=== PATIENT | female | born 1980 | race American Indian/Alaskan Native ===

== ENCOUNTER 2016-03-22 09:00 | Inpatient (IN) | payer OTHER ==
[2016-04-20 12:13] LABS: Hematocrit 42.4 % (30.3-42.9); Hemoglobin 14.2 gm/dl (10.1-14.3); Mean Corpuscular HGB Conc 33 % (30-34); Mean Corpuscular Hemoglobin 29 pg (28-32); Mean Corpuscular Volume 88 fl (79-97); Platelet Count 335 K/mm3 (140-440); Red Blood Count 4.85 M/mm3 (3.65-5.03); Red Cell Distribution Width 14.8 % (13.2-15.2); White Blood Count 7.6 K/mm3 (4.5-11.0)
--- NOTE | 2016-04-20 12:24 | Anesthesia Consultation ---
Anesthesia Consult and Med Hx Date of service: 04/20/16 - Airway Anesthetic Teeth Evaluation: Good ROM Head & Neck: Adequate Mental/Hyoid Distance: Adequate Mallampati Class: Class II Intubation Access Assessment: Probably Good - Pulmonary Exam CTA: Yes - Cardiac Exam Cardiac Exam: RRR - Pre-Operative Health Status ASA Pre-Surgery Classification: ASA2 Proposed Anesthetic Plan: General Nerve Block: TAP - Pulmonary Hx Smoking: No Hx Asthma: Yes (USES FLOVENT DAILY, ALBUTEROL PRN) Hx Respiratory Symptoms: No Hx Sleep Apnea: No - Cardiovascular System Hx Hypertension: No Hx Cardia Arrhythmia: Yes (PALPITATIONS, BECERRA SYNDROME (POSTURAL HYPOTENSION, TACHYCARDIA)) Hx Valvular Heart Disease: Yes (MVP) - Central Nervous System Hx Neuromuscular Disorder: Yes (FIBROMYALGIA, CARPAL TUNNEL BILATERAL, PELVIC PAIN) Hx Seizures: No CVA: No Hx Psychiatric Problems: No - Endocrine Hx Renal Disease: No Hx Cirrhosis: No Hx Non-Insulin Dependent Diabetes: No Hx Hypothyroidism: No - Hematic Hx Anemia: No - Other Systems Hx Alcohol Use: Yes (rarely) Hx Cancer: No Hx Obesity: No - Additional Comments Anesthesia Medical History Comments: [facility]. RECENTLY SEEN BY DR. OCONNELL (DECAL APPLIER) FROM [facility]. STARTED PATIENT ON INDERAL.
[2016-04-24] MEDS ORDERED: VERSED IV NR (06:00)
[2016-04-24] MEDS ORDERED: REGLAN PO NR (06:00)
[2016-04-24] MEDS ORDERED: PEPCID PO NR (06:00)
[2016-04-24] MEDS ORDERED: LACTATED RINGERS 1,000 ML IV SCH (06:00)
[2016-04-24] MEDS ORDERED: NEURONTIN PO NR (06:00)
[2016-04-24] MEDS ORDERED: SUBLIMAZE IV NR (06:00)
[2016-04-24] MEDS ORDERED: NACL BACTERIOSTATIC INFILTRATI ONE (11:44)
--- NOTE | 2016-04-24 11:52 | History and Physical Report ---
History of Present Illness Date of examination: 04/24/16 Date of admission: 04/24/16 11:20 Chief complaint: Symptomatic fibroid uterus History of present illness: Patient is a 35-year-old black female G0, LMP 03/29/2016 presents for surgical evaluation of her symptomatic fibroid uterus. A pelvic ultrasound performed showed an enlarged uterus with a large lateral fibroid measuring 4.57 cm x 3.79 cm, and a posterior fibroid measuring 3.22 cm x 2.70 cm. She is therefore scheduled for an abdominal myomectomy since she desires future fertility. Past History Past Medical History: asthma, arrhythmia (Normal ECHO and normal EKG) Past Surgical History: no surgical history [employer] History: fibroids Family/Genetic History: diabetes, cancer Social history: no significant social history, Medications and Allergies Allergies Allergy/AdvReac Type Severity Reaction Status Date / Time buspirone HCl [From BuSpar] Allergy N&V, Verified 04/19/16 16:43 blurred vision Home Medications Medication Instructions Recorded Confirmed Last Taken Type Albuterol Sulfate [Ventolin HFA] 2 puff IH Q4H PRN 04/19/16 04/24/16 04/21/16 History Ascorbic Acid [Vitamin C] 250 mg PO QDAY 04/19/16 04/19/16 04/22/16 History Cyanocobalamin [Vitamin B-12] 1,000 mcg PO DAILY 04/19/16 04/19/16 04/22/16 History Fluticasone (Nf) [Flovent Hfa(Nf)] 2 puff IH BID 04/19/16 04/24/16 04/24/16 10: 30 History Loratadine [Claritin] 10 mg PO DAILY 04/19/16 04/24/16 04/22/16 History Multivitamin Tab [Multiple Vitamin 1 each PO QDAY 04/19/16 04/19/16 04/22/16 History TAB (Theragran)] Multivits Min/Iron/FA/Herb#186 1 each PO DAILY 04/19/16 04/19/16 04/22/16 History [Hair, Skin and Nails Caplet] Om3/Dha/Epa/Cod Liver Oil/A/D3 1 each PO DAILY 04/19/16 04/19/16 04/22/16 History [Cod Liver Oil Softgel] Propranolol HCl 20 mg PO TID 04/19/16 04/24/16 04/24/16 10:30 History Pyridoxine HCl [Vitamin B-6] 100 mg PO DAILY 04/19/16 04/19/16 04/22/16 History Ubidecarenone [Coq-10] 100 mg PO DAILY 04/19/16 04/19/16 04/22/16 History Vitamin B Complex [Natural B-100] 1 each PO DAILY 04/19/16 04/19/16 04/22/16 History Vitamin E 1,000 unit PO DAILY 04/19/16 04/19/16 04/22/16 History Norgestimate-Ethinyl Estradiol 1 each PO DAILY 04/24/16 04/24/16 1 Month Ago History [Sprintec 28 Day Tablet] Active Meds: Active Medications Celecoxib (Celebrex) 200 mg PO PREOP NR Stop: 04/24/16 23:59 Famotidine (Pepcid) 20 mg PO PREOP NR Stop: 04/24/16 23:59 Fentanyl (Sublimaze) 100 mcg IV ONCE NR Stop: 04/24/16 23:59 Gabapentin (Neurontin) 300 mg PO PREOP NR Stop: 04/24/16 23:59 Lactated Ringer's (Lactated Ringers) 1,000 mls @ 75 mls/hr IV DIRECT KAVON Cefazolin Sodium (Ancef/Sterile Water 2 Gm/20 Ml) 2 gm in 20 mls @ 80 mls/hr IV PREOP KAVON PRN Reason: Protocol Metoclopramide HCl (Reglan) 10 mg PO PREOP NR Stop: 04/24/16 23:59 Midazolam HCl (Versed) 2 mg IV PREOP NR Stop: 04/24/16 23:59 Review of Systems All systems: negative - Vital Signs Vital signs: Vital Signs Temp Pulse Resp BP 98.2 F 100 H 14 132/80 04/20/16 11:30 04/20/16 11:30 04/20/16 11:30 04/20/16 11:30 Temp Pulse Resp BP Pulse Ox 98.6 F 75 20 113/75 100 04/24/16 11:35 04/24/16 11:35 04/24/16 11:35 04/24/16 11:35 04/24/16 11:35 - Physical Exam Breasts: Positive: deferred Cardiovascular: Regular rate Lungs: Positive: Clear to auscultation Abdomen: Positive: normal appearance Genitourinary (Female): Positive: normal external genitalia Vagina: Positive: normal moisture Uterus: Positive: enlarged Extremities: Positive: normal Results Result Diagrams: 04/20/16 11:40 All other labs normal. Ultrasound: image reviewed Assessment and Plan - Patient Problems (1) Fibroid uterus Onset Date: 04/24/16 Current Visit: Yes Status: Chronic Qualifiers: Uterine leiomyoma location: subserosal Qualified Code(s): D25.2 - Subserosal leiomyoma of uterus Plan to address problem: A: Symptomatic fibroid uterus History of endometriosis P: Admit for an abdominal myomectomy We will have Cell Saver available since patient will not receive any blood products
[2016-04-24] MEDS ORDERED: ANCEF/STERILE WATER 2 GM/20 ML 2 GM/20 ML SYRINGE IV SCH (12:00)
[2016-04-24] MEDS ORDERED: XYLOCAINE MPF 2% ONE (12:40)
[2016-04-24] MEDS ORDERED: QUELICIN ONE (12:40)
[2016-04-24] MEDS ORDERED: SUBLIMAZE ONE ×2 (12:40→12:41)
[2016-04-24] MEDS ORDERED: DIPRIVAN 10 MG/ML IV ONE (12:41)
[2016-04-24] MEDS ORDERED: ROBINUL ONE (13:05)
[2016-04-24] MEDS ORDERED: ZOFRAN ONE (13:18)
[2016-04-24] MEDS ORDERED: REGLAN ONE (13:18)
[2016-04-24] MEDS ORDERED: NACL 0.9% IV ONE (13:43)
[2016-04-24] MEDS ORDERED: ACD-A IV ONE (13:43)
[2016-04-24] MEDS ORDERED: ePHEDrine SULFATE ONE (13:44)
[2016-04-24] MEDS ORDERED: NACL 0.9% IR ONE (13:44)
[2016-04-24] MEDS ORDERED: LACTATED RINGERS 1,000 ML ONE (13:45)
[2016-04-24] MEDS ORDERED: NEOSTIGMINE ONE (13:52)
[2016-04-24] MEDS ORDERED: MORPHINE ONE (14:29)
[2016-04-24] MEDS ORDERED: REGLAN IV PRN (15:04)
[2016-04-24] MEDS ORDERED: ZOFRAN IV PRN (15:04)
[2016-04-24] MEDS ORDERED: BENADRYL IV PRN (15:04)
[2016-04-24] MEDS ORDERED: NARCAN 0.4 MG/1 ML IV PRN (15:04)
[2016-04-24] MEDS ORDERED: PHENERGAN PR PRN (15:07)
[2016-04-24] MEDS ORDERED: TYLENOL PO PRN (15:07)
[2016-04-24] MEDS ORDERED: MILK OF MAGNESIA PO PRN (15:07)
[2016-04-24] MEDS ORDERED: PERCOCET 5/325 PO PRN (15:07)
--- NOTE | 2016-04-24 15:32 | Operative Report ---
Operative Report Operative Report: Date of procedure: 04/24/2016 Pre-operative diagnosis: Symptomatic fibroid uterus Post-operative diagnosis: Same with right ovarian cyst Procedure name(s): 1. Abdominal myomectomy 2. Right ovarian cystectomy Surgeon: Blaine Hernandez MD [employer] Consulting Architect: None Anesthesia: General endotracheal intubation by Dr. Jesús Bundy EBL: 100 mL's Findings: A 12-14 week size multi-myomatous uterus with a right ovarian cyst and normal left ovary. Normal fallopian tubes bilaterally. The endometrial cavity was not entered, thus the patient should not be subjected to a C- section should she get . Procedure: After the patient was correctly identified, she was prepped and draped in the usual sterile fashion and placed in dorsolithotomy position. First the skin knife was used to make a transverse skin incision. The incision was extended down to layer of the fascia which was nicked in the midline and extended laterally using Bovie cautery. The rectus muscles were dissected off the rectus fascia both superiorly and inferiorly. The rectus bellies in the midline and the peritoneum was entered under direct visualization. Exploration of the pelvic organs found the uterus to be enlarged approximately 12-14 week size with 2 large prominent myomas and several small myomas. Both fallopian tubes appeared to be normal bilaterally. The right ovary was cystic and the left ovary appeared to be normal. Next Pitressin solution was used to infiltrate the base of the myomas which were both located at the fundus of the uterus. After the incision into the serosal layer, the myomas were removed using both sharp and blunt dissection. The endometrial cavity was not entered. 3 small fibroids removed in similar fashion. The myometrial layer was reapproximated using 2-0 Monocryl suture, thus occluding the space, and the serosal layer was also reapproximated using 2-0 Monocryl suture in a running interlocking fashion. The same procedure was performed for each fibroid , and excellent hemostasis was achieved. The right ovarian cyst was removed, and the ovary closed using 3-0 Vicryl suture in a running interlocking fashion. At this point the procedure was considered complete. Copious amounts of irrigation was then performed, and the Tisseel sealant was sprayed across the serosal layer. Excellent hemostasis was assured. The uterus was then returned to its normal anatomical position, and the peritoneum was reapproximated using 0 Vicryl suture in a running interlocking fashion. The rectus muscles were also reapproximated using 0 Vicryl suture in a [id number] configuration. The fascia was reapproximated using 0 Vicryl suture in a running interlocking fashion, the subcutaneous layer was made hemostatic using Bovie cautery and the skin edges reapproximated using 3-0 Monocryl suture in a subcuticular fashion. The patient tolerated the procedure well and was transported to recovery in stable condition.
[2016-04-24] MEDS ORDERED: MORPHINE PCA 30MG/30ML IV SCH (16:00)
[2016-04-24] MEDS ORDERED: NACL 0.9% 1000 ML 1,000 ML IV SCH (16:00)
[2016-04-24] MEDS ORDERED: ANCEF/NS 1 GM/50 ML 1 GM/50 ML BAG IV SCH (16:00)
[2016-04-24] MEDS: D5LR 1,000 ML IV SCH (17:30)
[2016-04-24] MEDS: TORADOL IV SCH (17:30)
--- NOTE | 2016-04-24 19:02 | Admit Criteria Form ---
Admission Criteria Documentation: AMBULATORY SURGERY EXCEPTION CRITERIA Ambulatory Surgery Exception Criteria ( Place 'X' for any and all applicable criteria): Surgery or procedure performed on ambulatory basis may require inpatient stay for[A] ANY ONE of the following(1)(2)(3)(4)(5)(6)(7)(8)(9): [X] I. A preoperative situation, condition, or finding that warrants inpatient stay as indicated by ANY ONE of the following: [] a) Inpatient care needed because of severity of a disease or condition rather than the surgery (eg, severe cardiac or respiratory disease, severe infection) (15) (16 ) (17) (18) [] b) Emergent procedure (eg, angioplasty for acute ischemia)(19) [X] c) Complex surgical approach or situation as indicated by ANY ONE of the following(3): [X] i) Open approach needed instead of usual endoscopic, transcatheter, or other less invasive procedure [] ii) Difficult approach because of previous operation [] iii) Airway monitoring required after open neck procedures(20)(21) [] iv) Large mass requiring unusually extensive dissection [] v) Additional complicating feature requiring inpatient care (eg, drain management)(22(23): [] d) Major surgery in a pt with high anesthetic risk as indicated by ANY ONE of the following (2)(3)(5)(7)(8): [] i) ASA risk class III or higher (severe systemic disease impairing function) [D] [] ii) Advanced age (eg, older than 85 years)(14)(24) [] iii) Symptomatic heart failure(25) [] iv) Symptomatic asthma or COPD(8)(21) [] v) Morbid obesity with hemodynamic or respiratory problems(20)( 21)(26)(27) [] vi) Obstructive sleep apnea(20)(21) [] vii) Former premature infants who are younger than 60 weeks [] viii) High risk for severe postoperative abnormalities (eg, severe postoperative hypocalcemia after parathyroidectomy for severe hyperparathyroidism)(27)( 28) [] ix) Unstable angina(25) [] e) Drug-related risk requiring inpatient stay as indicated by ANY ONE of the following(5)(10)(14)(32)(33) [] i) Procedure requires discontinuing drugs or other therapy (eg , antiarrhythmic medication, antiseizure medication), which necessitates inpatient observation or treatment.(18)(31) [] ii) Major surgery and high risk drug use as indicated by ANY ONE of the following: [] 1) Active abuse of cocaine or similar drug [] 2) Monoamine oxidase inhibitor use [] 3) Other drug identified as posing risk [] f) Inadequate outpatient care situation as indicated by ANY ONE of the following(5)(10)(14)(32)(33) [] i) Patient lives remote from medical facility and procedure has urgent complication potential, and temporary nearby residence cannot be arranged [] ii) Patient will have postprocedure incapacitation and inadequate assistance at home, or alternative level of care cannot be arranged. [] iii) Patient will have long general anesthesia or procedure side effect resolution time, and competent person to stay with patient on first postoperative night at home or alternative level of care cannot be arranged. []iv) Other inadequate outpatient situation that cannot be handled by other means [] II. A perioperative event, condition, or finding that warrants inpatient stay as indicated by ANY ONE of the following (1)(2)(3): [] a) Inadequate physiologic recovery: cardiovascular, respiratory, or hemodynamic status not normal or near preoperative baseline(18) [] b) Hemodynamic instability [] c) Patient not alert with near normal or baseline mental status [] d) Temperature not normal or as expected and not appropriate for outpatient treatment of condition [] e) Ambulatory or appropriate activity level status not yet achieved post procedure [E](34)(35)(36) [] f) Operative site not appropriate (eg, unexpected or excessive drainage or bleeding) [] g) Postoperative effects not resolved or adequately managed (eg, significant pain or vomiting not appropriate for outpatient or next level of care)(10)(12) [] h) Complicating features requiring inpatient care as indicated by ANY ONE of the following(37): [] i) Severe complications of procedure (eg, bowel injury, airway compromise, vascular injury,severe hemorrhage) [] ii) Extensive (eg, dissection far beyond usual scope of procedure ) or prolonged (eg, 120 minutes beyond usual) surgery needed requiring inpatient postoperative care [] iii) Conversion to an open or complex procedure that requires inpatient care (eg, open vs laparoscopic cholecystectomy, abdominal vs vaginal hysterectomy)(38) [] iv) Comorbid condition or test result identified during or post procedure that requires inpatient care (7) [] v) Malignant hyperthermia(30) [] vi) Other complicating feature requiring inpatient care(22)(23) Inpatient stay may be needed until ALL of the following are present (1)(2)(3)(4) (5)(6)(10)(14)(33)(40): []a) Physiologic recovery: cardiovascular, respiratory, and hemodynamic status normal or near preoperative baseline []b) Hemodynamic stability []c) Patient alert, with near normal or baseline mental status []d) Temperature appropriate: patient afebrile or temperature appropriate for outpt treatment of condition []e) Activity level appropriate: ambulatory or appropriate activity level post procedure []f) Operative site appropriate as indicated by ALL of the following: []i) Site dry or with expected drainage []ii) Any blood noted is as expected for procedure. []g) Postoperative effects resolved or managed as indicated by ALL of the following: []i) Pain management appropriate for outpatient (or next level of) care(10) []ii) Minimal nausea and vomiting: if present, successfully treated with oral medication(12) []iii) Headache, dizziness, or drowsiness (if present) are mild. []h) Voiding status acceptable as indicated by ANY ONE of the following: []i) Voiding spontaneously []ii) No voiding but instructions given for follow-up in 6 to 8 hours []iii) Urinary catheter in place, and instructions given for follow-up []i) Complicating features requiring inpatient care manageable at a lower level of care(37) []j) Comorbid conditions manageable at a lower level of care(37) The original [employer] content created by [employer] has been revised. The portions of the content which have been revised are identified through the use of italic text or in bold, and [employer] has neither reviewed nor approved the modified material. All other unmodified content is copyright [employer]. Please see references footnoted in the original [employer] edition 2016 Admission Criteria Met: Yes
[2016-04-24] MEDS ORDERED: SENOKOT S PO SCH (22:00)
[2016-04-25] MEDS: D5LR 1,000 ML IV SCH (00:30)
[2016-04-25] MEDS: ANCEF/NS 1 GM/50 ML 1 GM/50 ML BAG IV SCH ×2 (00:40→08:46)
[2016-04-25] MEDS: TORADOL IV SCH ×2 (04:00)
[2016-04-25 06:32] LABS: Hematocrit 34.1 % (30.3-42.9); Hemoglobin 11.4 gm/dl (10.1-14.3)
--- NOTE | 2016-04-25 07:35 | Progress Note ---
Assessment and Plan - Patient Problems (1) Fibroid uterus Onset Date: 04/24/16 Current Visit: Yes Status: Resolved Qualifiers: Uterine leiomyoma location: subserosal Qualified Code(s): D25.2 - Subserosal leiomyoma of uterus (2) Status post myomectomy Onset Date: 04/25/16 Current Visit: Yes Status: Resolved Plan to address problem: A: S/P Abdominal myomectomy with right ovarian cystectomy - POD #1 Doing well P: Continue RPOC Anticipate discharge in 24-48hrs Subjective - Subjective Date of service: 04/25/16 Principal diagnosis: s/p Abdominal myomectomy - POD #1 Interval history: Patient is feeling well except for incisional pain. She is tolerating a liquid diet without nausea or vomiting. Findings at surgery discussed with her and her mother. Patient reports: appetite normal, voiding normally, pain well controlled, ambulating normally, no flatus, no bowel movement Objective - Vital Signs Latest vital signs: Vital Signs Temp Pulse Pulse Resp BP BP Pulse Ox 04/25/16 00:10 98.6 F 76 16 117/63 04/24/16 22:00 18 04/24/16 19:50 98.4 F 65 20 111/64 04/24/16 19:30 18 04/24/16 18:46 20 04/24/16 17:49 20 04/24/16 17:30 20 04/24/16 16:45 97.4 F L 76 20 108/62 04/24/16 16:40 97.4 F L 76 20 108/62 04/24/16 16:00 60 19 110/60 96 04/24/16 15:55 97.6 F 63 20 118/55 95 04/24/16 15:41 59 L 20 113/62 97 04/24/16 15:25 56 L 20 116/65 96 04/24/16 15:10 55 L 22 124/69 95 04/24/16 15:05 58 L 16 119/69 94 04/24/16 15:00 59 L 21 128/72 96 04/24/16 14:55 98.5 F 66 16 135/77 98 04/24/16 11:55 98.6 F 76 20 113/75 100 04/24/16 11:35 98.6 F 75 20 113/75 100 Intake and Output 04/24/16 04/25/16 04/25/16 22:59 06:59 14:59 Intake Total 670 1240 Output Total 200 400 Balance 470 840 Intake: IV 550 1000 D5lr 1,000 ml @ 125 mls/ 250 1000 hr IV DIRECT KAVON Rx#: [id number] Oral 120 Intake, Free Water 240 Output: Urine 200 400 Indwelling Catheter 400 Uretheral (Mendes) 100 Other: Total, Intake Amount 120 Total, Output Amount 400 Voiding Method Indwelling Catheter Indwelling Catheter - Exam Breasts: Present: deferred Cardiovascular: Present: Regular rate Lungs: Present: Clear to auscultation Abdomen: Present: normal appearance, soft Extremities: Present: normal Incision: Present: normal, dry, intact, dressed - Labs Labs: Laboratory Tests 04/20/16 04/20/16 04/25/16 11:40 11:40 05:38 WBC 7.6 RBC 4.85 Hgb 14.2 11.4 Hct 42.4 34.1 MCV 88 MCH 29 MCHC 33 RDW 14.8 Plt Count 335 HCG, Qual Negative
[2016-04-25] MEDS: NORCO 5/325 PO PRN ×3 (08:37→20:18)
[2016-04-25] MEDS: COLACE PO SCH ×2 (08:49→21:56)
[2016-04-25] MEDS ORDERED: ANCEF/NS 1 GM/50 ML 1 GM/50 ML BAG IV SCH (09:00)
--- NOTE | 2016-04-26 08:15 | Progress Note ---
Assessment and Plan A: S/P Abdominal myomectomy with right ovarian cystectomy - POD #2 Doing well P: Continue RPOC Possible discharge today - Patient Problems (1) Status post myomectomy Onset Date: 04/25/16 Current Visit: Yes Status: Resolved Subjective - Subjective Date of service: 04/26/16 Principal diagnosis: s/p Abdominal myomectomy - POD #2 Interval history: Patient seen and examined, stable doing well. No fever or chills, ambulating without difficulty patient appears well controlled Patient reports: appetite normal, voiding normally, pain well controlled, ambulating normally, no dizzy ambulation, no flatus Objective - Vital Signs Latest vital signs: Vital Signs Temp Pulse Resp BP 04/26/16 05:03 99 F 96 H 20 118/70 04/26/16 00:55 98.5 F 105 H 18 107/71 04/25/16 19:50 99.6 F 100 H 20 123/70 04/25/16 16:15 98.2 F 108 H 20 113/61 04/25/16 12:59 98.2 F 84 20 117/67 04/25/16 09:34 97.9 F 87 18 110/53 Intake and Output 04/25/16 04/26/16 04/26/16 22:59 06:59 14:59 Intake Total 1020 240 Output Total 400 Balance 620 240 Intake: Oral 1020 Intake, Free Water 240 Output: Urine 400 Void 400 Other: Total, Intake Amount 240 Total, Output Amount 400 Voiding Method Toilet # Voids Void 1 1 - Exam Abdomen: Present: normal appearance, soft. Absent: distention, tenderness, guarding, rigidity Incision: Present: dry, dressed
[2016-04-26] MEDS: COLACE PO SCH (09:58)
[2016-04-26] MEDS: NORCO 5/325 PO PRN ×2 (10:00→16:35)
--- NOTE | 2016-04-26 10:11 | Discharge Summary ---
Providers - Providers Date of Admission: 04/24/16 11:20 Date of discharge: 04/26/16 Attending physician: TALYA LIPSCOMB Primary care physician: SHAYE GIRALDO Hospitalization Reason for admission: other (myomectomy) Procedure: other (abdominal myomectomy) Procedure details: See operative note Incision: dry, intact Discharge diagnosis: other (Status post myomectomy) Hospital course: Uncomplicated postop hospital course Condition at discharge: Good Disposition: DISCHARGED TO HOME OR SELFCARE - Discharge Diagnoses (1) Status post myomectomy Status: Resolved Plan - Discharge Medications Prescriptions: HYDROcodone/APAP 5-325 [[place] 5/325] 1 each PO Q6HR PRN #30 tablet PRN Reason: Pain Ibuprofen [Motrin] 800 mg PO Q8HR PRN #30 tablet PRN Reason: Moder Pain Unrelieved By [place] - Provider Discharge Summary Activity: no sex for 6 weeks, no heavy lifting 4 weeks, no strenuous exercise Diet: routine Additional instructions: [] Smoking cessation referral if applicable(refer to patient education folder for contact #) [] Refer to [facility]'s [facility] Booklet Call your doctor immediately for: * Fever > 100.5 * Heavy vaginal bleeding ( >1 pad per hour) * Severe persistent headache * Shortness of breath * Reddened, hot, painful area to leg or breast * Drainage or odor from incision. * Keep incision clean and dry at all times and follow doctor's instructions regarding bathing/showering - Follow up plan Follow up: SHAYE GIRALDO MD [Primary Care Provider] - 7 Days TALYA LIPSCOMB MD [Staff Physician] - 14 Days
[2016-04-26 16:59] VITALS: BP 116/81
== END 2016-04-26 19:50 | disposition home or self-care (01) | DRG 743 ==
LOC: 3A 04-24 11:20 → OB 04-24 15:48
PROVIDERS: ADMIT Obstetrics & Gynecology; ATTEND Obstetrics & Gynecology
PROC: 0UB90ZZ Excision of Uterus, Open Approach (ICD-10-PCS; principal; 2016-04-24)
PROC: 0UB00ZZ Excision of Right Ovary, Open Approach (ICD-10-PCS; 2016-04-24)
DX: D25.2 Subserosal leiomyoma of uterus (principal); Z88.8 Allergy status to other drugs, medicaments and biological substances; Z83.3 Family history of diabetes mellitus; Z80.9 Family history of malignant neoplasm, unspecified
CPT/HCPCS: 36415; 84703; 85014; 85018; 85027; 88305; C9250; J0330; J0690; J1885; J2250; J2270; J2405; J2704; J2710; J2765; J3010; J7120; J7121